=== PATIENT | female | born 1975 | race Caucasian/White ===

== ENCOUNTER → 2024-07-02 | Outpatient (CLI) | payer MEDICAID, SELFPAY ==
--- NOTE | 2024-07-02 | XR_ITS ---
Examination: Bilateral knees 2 views Right lateral knee left lateral knee 2 views Bilateral axial knees single view TECHNIQUE: Bilateral AP knees standing single view, bilateral PA knees standing single view 30 degrees flexion Standing right lateral knee, left lateral knee 2 views Bilateral axial knees single view total 5 views Exam date and time: July 02, 2024 1148 hours INDICATIONS: Bilateral knee pain years FINDINGS: Moderate osteopenia Advanced narrowing [id number] medial joint spaces No fracture or dislocation involving either knee Moderate to advanced bilateral osteoarthritis patellofemoral joints IMPRESSION: Advanced narrowing [id number] medial joint spaces Bilateral significant osteoarthritis patellofemoral joints
== END | disposition home or self-care (01) ==
PROVIDERS: PCP Plastic Surgery; Referring Provider Specialist; Visit Provider Specialist
DX: M17.0 Bilateral primary osteoarthritis of knee (principal); M25.862 Other specified joint disorders, left knee; M25.861 Other specified joint disorders, right knee
CPT/HCPCS: 73564